=== PATIENT | male | born 1980 | race Two or more races ===

== ENCOUNTER 2017-09-01 15:36 | Inpatient (IN) | payer MEDICAID, OTHER ==
[~2017-09-01] VITALS: Ht 170.2 cm; Wt 91.6 kg
[2017-09-01] MEDS ORDERED: ONDANSETRON HCL/PF 4 MG/2 ML VIAL ONE (16:27)
[2017-09-01] MEDS ORDERED: HYDROMORPHONE INJ 2 MG/ML DISP.SYRIN ONE (16:28)
[2017-09-01] MEDS ORDERED: IV NS 0.9% 1,000 ML BAG IV ONE ×2 (16:30→21:30)
[2017-09-01] MEDS ORDERED: HYDROMORPHONE INJ 2 MG/ML DISP.SYRIN IV ONE (16:30)
[2017-09-01] MEDS ORDERED: ONDANSETRON HCL/PF 4 MG/2 ML VIAL IVP ONE (16:30)
[2017-09-01 16:38] LABS: BASOPHILS % (AUTO) 0.3 % (0.0-2.0); EOSINOPHILS % (AUTO) 1.5 % (0.0-6.0); HEMATOCRIT 43 % (39-51); LYMPHOCYTES # (AUTO) 1.3 /CMM (0.8-4.8); LYMPHOCYTES % (AUTO) 10.2 % (20.0-44.0); MEAN CORPUSCULAR HGB CONC 35 g/dl (31.0-36.0); MEAN CORPUSCULAR VOLUME 86 fL (80-96); MONOCYTES # (AUTO) 1.4 /CMM (0.1-1.30); MONOCYTES % (AUTO) 11.1 % (2.0-12.0); NEUTROPHILS # (AUTO) 9.5 /CMM (1.8-8.9); NEUTROPHILS % (AUTO) 76.9 % (43.0-81.0); PLATELET COUNT (AUTO) 371 /CMM (150-450); RDW COEFFICIENT OF VARIATION 12.4 (11.5-15.0); RED BLOOD CELL COUNT(AUTO) 4.96 MIL/uL (4.5-6.0); WHITE BLOOD COUNT (AUTO) 12.4 K/uL (4.3-11.0)
[2017-09-01 16:51] LABS: CALCIUM, SERUM 10.1 mg/dL (8.5-10.1); CARBON DIOXIDE 27 mmol/L (21-32); CHLORIDE 102 mmol/L (98-107); CREATININE 0.8 mg/dL (0.6-1.3); GLUCOSE 94 mg/dL (74-106); SODIUM SERUM 137 mmol/L (136-145); UREA NITROGEN, BLOOD 13 mg/dL (7-18)
[2017-09-01 16:56] LABS: ALANINE AMINOTRANSFERASE 26 U/L (12-78); ALKALINE PHOSPHATASE 205 U/L (46-116); ASPARTATE AMINOTRANSFERASE 22 U/L (15-37); BILIRUBIN,DIRECT 0.4 mg/dL (0.0-0.2); BILIRUBIN,TOTAL 0.9 mg/dL (0.2-1.0); LIPASE 120 U/L (73-393); TOTAL PROTEIN, SERUM 7.6 g/dL (6.4-8.2)
[2017-09-01 17:03] LABS: TROPONIN I < 0.017 ng/mL (0.00-0.056)
[2017-09-01] MEDS ORDERED: ASPI-1169 PO (18:28)
[2017-09-01] MEDS ORDERED: PIPERACILLIN /TAZOBACTAM 3.375 G in IV D5W 50 ML IV ONE (18:30)
[2017-09-01 18:53] LABS: THYROID STIMULATING HORMONE 0.928 uIU/mL (0.358-3.74)
[2017-09-01 19:02] LABS: APPEARANCE,URINE Clear (CLEAR); BILIRUBIN,URINE Negative (NEGATIVE); BLOOD, URINE Moderate Ery/uL (NEGATIVE); COLOR,URINE Yellow (YELLOW); KETONES,URINE Negative (NEGATIVE); LEUKOCYTE ESTERASE ,URINE Negative (NEGATIVE); NITRITE, URINE Negative (NEGATIVE); PROTEIN,URINE Negative (NEGATIVE); UGLUCOSE Negative (NEGATIVE); UROBILINOGEN,URINE 0.2 EU/dL (0.2)
--- NOTE | 2017-09-01 19:24 | NUR ---
RECEIVED REPORT FROM CJ SANTILLAN FOR COLEEN. PT RESTING COMFORTABLY IN BED. VSS WILL CONTINUE TO MONITOR PT
[2017-09-01 19:49] LABS: WBC,URINE 0-2 /HPF (0-3)
[2017-09-01 19:50] LABS: BACTERIA,URINE Rare /HPF (None Seen); SQUAMOUS EPITHELIAL CELL,UR Rare /HPF (None Seen)
--- NOTE | 2017-09-01 21:15 | NUR ---
CALLED NURSING SUP. FOR TELE BED
--- NOTE | 2017-09-01 21:21 | NUR ---
TELE 323-1 FOR CHEST PAIN, ABDOMINAL PAIN, MICHEL EDWARD ADMITTING
--- NOTE | 2017-09-01 21:37 | NUR ---
PT TO CT
[2017-09-01] MEDS ORDERED: IOHEXOL-350 100 ML VIAL IV ONE (21:39)
--- NOTE | 2017-09-01 21:55 | NUR ---
PT BACK FROM CT
--- NOTE | 2017-09-01 22:38 | NUR ---
DL 102
--- NOTE | 2017-09-01 22:50 | NUR ---
REPORT GIVEN TO DL MOYA FOR COLEEN.
[2017-09-01 23:25] VITALS: BP 130/87
--- NOTE | 2017-09-01 23:30 | NUR ---
RN DL ADMITTING NOTE RECEIVED PT FROM ER, NIGHT WAREHOUSE SELECTOR NURSE GAVE REPORT, 37 YR OLD MALE, C/O BACK PAIN RADIATING TO ABD, CONSTIPATION, AOX3, ON NC @ 2L/PM WELL ISIDRA , NO SKIN ISSUES, WITH LAC #18G, INTACT. ADMITTING NURSE EPIDEMIOLOGIST WAGNER, ORDERS ENTERED PER PROTOCOL, PT CAME C/O ABD PAIN 10/10 DILUADID PRN 0.5 MG GIVEN ORDERED, EFFECTIVE AFTER 30 MINUTES, PT NPO, NS@75ML STARTED. ALL NEEDS MET CALL LIGHT WR WELL SAFETY MEASURES IN PLACE. WILL CONT TO MONITOR, PT FOR ECG N AM.
[2017-09-01] MEDS ORDERED: IV NS 0.9% 1,000 ML IV PRN (23:51)
[2017-09-02] VITALS: BP 130/87
[2017-09-02] MEDS ORDERED: MAGNESIUM HYDROXIDE 30 ML UDC PO PRN
[2017-09-02] MEDS ORDERED: MAG HYDROX/AL HYDROX/SIMETH 30 ML UDC PO PRN
[2017-09-02] MEDS ORDERED: ONDANSETRON HCL/PF 4 MG/2 ML VIAL IVP PRN
[2017-09-02] MEDS ORDERED: ZOLPIDEM TARTRATE 5 MG TABLET PO PRN
[2017-09-02] MEDS ORDERED: ACETAMINOPHEN 325 MG TABLET PO PRN
[2017-09-02] MEDS ORDERED: Z GUARD REMEDY 2 OZ OINT TP PRN
[2017-09-02] MEDS: HYDROMORPHONE INJ 2 MG/ML DISP.SYRIN IV PRN ×4 (00:31→20:03)
[2017-09-02] MEDS: ENOXAPARIN SODIUM 40 MG/0.4 ML DISP.SYRIN SQ SCH (00:33)
[2017-09-02 04:00] VITALS: BP 128/66
--- NOTE | 2017-09-02 06:13 | NUR ---
RN DL CLOSING NOTES ENDORSED PT STILL ASLEEP, SEVERAL ATTEMPTS MADE THROUGH SHIFT TO GIVE MOM PRN D/T CONSTIPATION PT INSIST TO HAVE IT IN AM. WILL ENDORSE TO AM SHIFT TO F/U.
[2017-09-02 07:07] LABS: BASOPHILS % (AUTO) 0.2 % (0.0-2.0); EOSINOPHILS % (AUTO) 1.9 % (0.0-6.0); HEMATOCRIT 40 % (39-51); HEMOGLOBIN 13.5 g/dL (13.5-17.5); LYMPHOCYTES # (AUTO) 1.6 /CMM (0.8-4.8); LYMPHOCYTES % (AUTO) 13.5 % (20.0-44.0); MEAN CORPUSCULAR HGB CONC 34 g/dl (31.0-36.0); MEAN CORPUSCULAR VOLUME 88 fL (80-96); MONOCYTES # (AUTO) 1.4 /CMM (0.1-1.30); MONOCYTES % (AUTO) 11.8 % (2.0-12.0); NEUTROPHILS # (AUTO) 8.8 /CMM (1.8-8.9); NEUTROPHILS % (AUTO) 72.6 % (43.0-81.0); PLATELET COUNT (AUTO) 353 /CMM (150-450); RDW COEFFICIENT OF VARIATION 13.7 (11.5-15.0); RED BLOOD CELL COUNT(AUTO) 4.51 MIL/uL (4.5-6.0); WHITE BLOOD COUNT (AUTO) 12.1 K/uL (4.3-11.0)
[2017-09-02 07:22] LABS: CALCIUM, SERUM 9.8 mg/dL (8.5-10.1); CREATININE 0.7 mg/dL (0.6-1.3); MAGNESIUM 1.8 mg/dL (1.8-2.4); PHOSPHORUS 3.4 mg/dL (2.5-4.9); POTASSIUM 4.6 mmol/L (3.5-5.1)
[2017-09-02 08:00] VITALS: BP 118/83
--- NOTE | 2017-09-02 08:00 | NUR ---
DL RN NOTE PATIENT IN BED ,ALL NEEDS ATTENDED ON NPO STATUS ,ON TELE MONITOR ST 110 ,LT AC HL ON IVF ORDERED BED IN LOWEST AND LOCKED POSITION , CALL LIGHT WITHIN REACH, MOM GIVEN FOR CONSTIPATION NO SOB NOTED
[2017-09-02] MEDS: PIPERACILLIN /TAZOBACTAM 3.375 G in IV D5W 50 ML IV SCH ×3 (08:08→17:14)
[2017-09-02] MEDS: PANTOPRAZOLE 40 MG VIAL IV SCH (08:08)
--- NOTE | 2017-09-02 09:20 | NUR ---
DL RN NOTE SEEN BY DR GRACE DEPARTMENTAL SHIPPING CLERK WITH NEW ORDER GIVEN
[2017-09-02] MEDS: ASPIRIN 81 MG TAB.CHEW PO SCH (09:26)
--- NOTE | 2017-09-02 09:30 | NUR ---
DL RN NOTE DILAUDID FOE PAIN 9\10 SCALE IN ABDOMEN GIVEN BP 118/83 SAT 93% AT BEDSIDE
--- NOTE | 2017-09-02 10:26 | NUR ---
DL RN NOTE C\O CONSTIPATION ,CALLED TO SAMANTA VILLARREAL WITH ORDER TO GIVE SUP NEEDED
[2017-09-02] MEDS ORDERED: BISACODYL SUPP (10 MG) 10 MG/SUPP.RECT SUPP.RECT RC PRN ×2 (10:30→19:30)
[2017-09-02 12:00] VITALS: BP 118/83
--- NOTE | 2017-09-02 12:25 | NUR ---
MS RN NOTE DULCOLAX SUP KS GIVEN ORDERED ,WILL MONITOR CLOSELY
--- NOTE | 2017-09-02 12:37 | NUR ---
MS RN NOTE PER SAMANTA VILLARREAL OK TO START CLEAR LIQUID DIET
--- NOTE | 2017-09-02 13:04 | NUR ---
MS RN NOTE SPOKE WITH SAMANTA VILLARREAL DNP NOTIFIED ABOUT CT ABDOMEN , STATED THAT WILL SEE PATIENT SOON ALSO AWARE THAT PRN MED FOR CONSTIPATION DONE STILL N BM T THI TIME WILL F\U
[2017-09-02] MEDS ORDERED: IOHEXOL-300 100 ML VIAL IV ONE (14:50)
--- NOTE | 2017-09-02 14:50 | NUR ---
MS RN NOTE TAKEN TO CT NECK CONSENT DONE BY PATIENT
--- NOTE | 2017-09-02 15:39 | NUR ---
MS RN NOTE 2D ECHO DOING AT THIS TIME
[2017-09-02 16:00] VITALS: BP 124/72
--- NOTE | 2017-09-02 17:15 | NUR ---
MS RN NOTE CT NECK RESULT REPORTED TO SAMANTA PINO NO NEW ORDER AT THIS TIME
--- NOTE | 2017-09-02 18:27 | NUR ---
MS RN NOTE CONT ON IVF ORDERED ALL NEEDS ATTENDED, NOT IN ACUTE DISTRES
[2017-09-02] MEDS ORDERED: POTASSIUM CHLORIDE 20 MEQ TAB.PRT.SR PO ONE (19:30)
[2017-09-02] MEDS ORDERED: FUROSEMIDE 100 MG/10 ML VIAL IV ONE (19:30)
[2017-09-02 20:00] VITALS: BP 117/76
--- NOTE | 2017-09-02 20:00 | NUR ---
DL RN NOTES RECEIVED BEDSIDE REPORT FROM AM NURSE. PT IN BES, A/O X4, EVEN, NON LABORED BREATHING WITH OXYGENATION LEVEL OF 92% ON RA, PT IS REFUSING TO USE NC FOR NOW. PT IS COMPLAINING OF PAIN 10/10 IN THE ABDOMINAL AREA. PAIN MANAGEMENT WILL BE PROVIDED. PT IS AMBULATORY WITH BRP, COMPLAINS OF CONSTIPATION FOR 2 DAYS. LEFT AC 18G IV LINE INFILTRATED AND REMOVED.NEW IV LINE 18G LEFT HAND HAS BEEN STARTED WHICH IS INTACT, PATIENT. IV FLUIDS ARE DC BY MD ORDER.ALL SAFETY MEASURES ARE IMPLEMENTED, BED IN LOW, LOCKED POSITION, CALL LIGHT IN REACH. WILL CONT. TO MONITOR.
[2017-09-02] MEDS: SENNOSIDES 8.6 MG TABLET PO SCH (21:43)
[2017-09-03] MEDS: PIPERACILLIN /TAZOBACTAM 3.375 G in IV D5W 50 ML IV SCH ×4 (00:51→17:13)
[2017-09-03] MEDS: ENOXAPARIN SODIUM 40 MG/0.4 ML DISP.SYRIN SQ SCH (00:52)
[2017-09-03] MEDS: HYDROCODONE/APAP 5/325MG 1 EACH TABLET PO PRN (01:02)
[2017-09-03 04:00] VITALS: BP_SYST 100; BP_SYST 126; BP_DIAS 42; BP_DIAS 91
[2017-09-03] MEDS: HYDROMORPHONE INJ 2 MG/ML DISP.SYRIN IV PRN ×4 (04:31→21:24)
[2017-09-03 06:31] LABS: BASOPHILS % (AUTO) 0.3 % (0.0-2.0); EOSINOPHILS % (AUTO) 2.1 % (0.0-6.0); HEMATOCRIT 40 % (39-51); HEMOGLOBIN 13.5 g/dL (13.5-17.5); LYMPHOCYTES # (AUTO) 1.5 /CMM (0.8-4.8); LYMPHOCYTES % (AUTO) 12.4 % (20.0-44.0); MEAN CORPUSCULAR HGB CONC 34 g/dl (31.0-36.0); MEAN CORPUSCULAR VOLUME 87 fL (80-96); MONOCYTES # (AUTO) 1.3 /CMM (0.1-1.30); MONOCYTES % (AUTO) 10.9 % (2.0-12.0); NEUTROPHILS % (AUTO) 74.3 % (43.0-81.0); PLATELET COUNT (AUTO) 409 /CMM (150-450); RDW COEFFICIENT OF VARIATION 13.5 (11.5-15.0); RED BLOOD CELL COUNT(AUTO) 4.63 MIL/uL (4.5-6.0); WHITE BLOOD COUNT (AUTO) 12.1 K/uL (4.3-11.0)
[2017-09-03 06:55] LABS: CALCIUM, SERUM 10.3 mg/dL (8.5-10.1); CREATININE 0.7 mg/dL (0.6-1.3); MAGNESIUM 1.9 mg/dL (1.8-2.4); PHOSPHORUS 3.4 mg/dL (2.5-4.9); POTASSIUM 4.5 mmol/L (3.5-5.1)
[2017-09-03 08:00] VITALS: BP 122/76
[2017-09-03] MEDS: ASPIRIN 81 MG TAB.CHEW PO SCH (09:14)
[2017-09-03] MEDS: PANTOPRAZOLE 40 MG VIAL IV SCH (09:14)
[2017-09-03] MEDS: LACTULOSE 10 G/15 ML UDC (PYXIS) PO PRN (09:21)
--- NOTE | 2017-09-03 11:40 | NUR ---
RN NOTE PT CO PAIN IN ABDOMEN AND UNABLE TO MOVE BOWELS FOR 5 DAYS NOW, DULCOLAX RECTALLY, MOM GIVEN YESTERDAY WITHOUT RESULT, PT RECEIVED LACTULOSE THIS MORNING, STILL NO RESULT, PT REPORTED THAT HE PASSES GAS ONLY. WILL F/U WITH .
--- NOTE | 2017-09-03 12:35 | NUR ---
RN NOTE PT REPORTED HAVING SOFT BOWEL MOVEMENT X1 AFTER GIVING LACTULOSE EARLIER. WILL MONITOR PT CLOSELY.
[2017-09-03 16:00] VITALS: BP 131/99
--- NOTE | 2017-09-03 19:30 | NUR ---
MS RN INITIAL NOTES, PATIENT IN BED , SLEEPING AT THIS TIME, BREATHING EVEN AND UNLABORED, NO SOB/ACUTE DISTRESS NOTES AT THIS TIME, NO S/S OF PAIN OR DISCOMFORT NOTES AT THIS TIME, LEFT HAND IV ACCESS PATENT AND INTACT, BED LOWEST AND LOCKED POSITION , CALL LIGHT WITHIN REACH, CALL LIGHT W/I REACH, WILL CONTINUE TO MONITOR CLOSELY.
[2017-09-03 20:00] VITALS: BP 132/72
[2017-09-03] MEDS: MUPIROCIN OINT 2% 22 GM TUBE SCH (21:23)
[2017-09-03] MEDS: SENNOSIDES 8.6 MG TABLET PO SCH (21:23)
[2017-09-04] MEDS: ENOXAPARIN SODIUM 40 MG/0.4 ML DISP.SYRIN SQ SCH
[2017-09-04] MEDS: PIPERACILLIN /TAZOBACTAM 3.375 G in IV D5W 50 ML IV SCH ×4 (00:54→17:12)
[2017-09-04] MEDS: HYDROMORPHONE INJ 2 MG/ML DISP.SYRIN IV PRN ×3 (01:39→12:51)
[2017-09-04 04:00] VITALS: BP 120/83
--- NOTE | 2017-09-04 06:43 | NUR ---
MS RN CLOSING NOTES, PATIENT IN BED ,AWAKE ALERT AND ORIENTED X4, BREATHING EVEN AND UNLABORED, NO SOB/ACUTE DISTRESS NOTES AT THIS TIME, NO S/S OF PAIN OR DISCOMFORT NOTED AT THIS TIME, LEFT HAND IV ACCESS PATENT AND INTACT, BED LOWEST AND LOCKED POSITION , NO SIGNIFICANT CHANGE OF CONDITION DURING THE SHIFT, CALL LIGHT W/I REACH, WILL ENDORSE CONTINUITY OF CARE TO ONCOMING NURSE.
[2017-09-04 07:03] LABS: BASOPHILS % (AUTO) 0.3 % (0.0-2.0); EOSINOPHILS % (AUTO) 2.1 % (0.0-6.0); HEMATOCRIT 40 % (39-51); HEMOGLOBIN 13.5 g/dL (13.5-17.5); LYMPHOCYTES # (AUTO) 1.3 /CMM (0.8-4.8); LYMPHOCYTES % (AUTO) 11.5 % (20.0-44.0); MEAN CORPUSCULAR HGB CONC 34 g/dl (31.0-36.0); MEAN CORPUSCULAR VOLUME 86 fL (80-96); MONOCYTES # (AUTO) 1.3 /CMM (0.1-1.30); MONOCYTES % (AUTO) 11.5 % (2.0-12.0); NEUTROPHILS # (AUTO) 8.5 /CMM (1.8-8.9); NEUTROPHILS % (AUTO) 74.6 % (43.0-81.0); PLATELET COUNT (AUTO) 375 /CMM (150-450); RDW COEFFICIENT OF VARIATION 13.3 (11.5-15.0); RED BLOOD CELL COUNT(AUTO) 4.59 MIL/uL (4.5-6.0); WHITE BLOOD COUNT (AUTO) 11.3 K/uL (4.3-11.0)
[2017-09-04 07:25] LABS: INR 1.05 (0.87-1.13)
[2017-09-04 07:40] LABS: CALCIUM, SERUM 10.3 mg/dL (8.5-10.1); CREATININE 0.8 mg/dL (0.6-1.3); PHOSPHORUS 3.2 mg/dL (2.5-4.9); POTASSIUM 4.1 mmol/L (3.5-5.1)
[2017-09-04 08:00] VITALS: BP 103/70
[2017-09-04] MEDS: PANTOPRAZOLE 40 MG VIAL IV SCH (08:29)
[2017-09-04] MEDS: MUPIROCIN OINT 2% 22 GM TUBE SCH ×2 (08:43→21:24)
[2017-09-04] MEDS: ASPIRIN 81 MG TAB.CHEW PO SCH (08:45)
[2017-09-04] MEDS: HYDROCODONE/APAP 5/325MG 1 EACH TABLET PO PRN ×2 (10:09→20:27)
--- NOTE | 2017-09-04 10:10 | NUR ---
RN NOTE PT HAD US GUIDED THORACENTHESIS N LEFT SIDE, TOTAL 1.2 L OF BLOODY FLUID REMOVED AND SENT TO PATHOLOGY. STAT CXR ORDERED. PT CO PAIN 7/10 IN LEFT SHOULDER POST THORAACENTESIS, NO SOB NOTED, LUNG SOUNDS RHONCHI, CHEST MOVEMENTS EQUAL.
[2017-09-04] MEDS: PANTOPRAZOLE 40 MG TABLET.DR PO SCH (10:30)
[2017-09-04] MEDS: FUROSEMIDE 40 MG/4 ML VIAL IV SCH ×2 (10:56→14:48)
[2017-09-04 11:02] VITALS: BP 107/68
[2017-09-04 16:00] VITALS: BP 110/71
--- NOTE | 2017-09-04 16:00 | NUR ---
RN NOTE SPOKE WITH US TECH REGARDING THE BIOPSY OF NECK IN L NECK, PT SCHEDULED FOR PROCEDURE ON 09/05/17 AT [id number] AM. PT TO BE KEPT NPO BEFORE PROCEDURE. WILL ENDORSE TO APPLICATIONS PROJECT MANAGER
[2017-09-04] MEDS: LACTULOSE 10 G/15 ML UDC (PYXIS) PO PRN (17:12)
--- NOTE | 2017-09-04 19:35 | NUR ---
RN NOTES PT RECEIVED STABLE CONDITION. FAMILY AT BEDSIDE. PT A/OX4. NEGATIVE SOB. NEGATIVE DISTRESS. 20G L HAND INTACT WITH GOOD BLOOD RETURN NEGATIVE SIGNS OF INFECTION/ INFILTRATION. ABLE TO AMBULATE WITH ASSISTANCE. BED LOCKED AND LOWEST POSITION. CALL LIGHT WITHIN REACH. ALL SAFETY OTHER SAFETY MEASURES IN PLACE. WILL CONTINUE TO MONITOR.
[2017-09-04 20:00] VITALS: BP 130/79
[2017-09-04] MEDS: SENNOSIDES 8.6 MG TABLET PO SCH (21:04)
[2017-09-05] VITALS: BP 136/80
[2017-09-05] MEDS: ENOXAPARIN SODIUM 40 MG/0.4 ML DISP.SYRIN SQ SCH
--- NOTE | 2017-09-05 | NUR ---
RN NOTES LOVENOX HELD DUE TO CT WITHOUT CONTRAST PROCEDURE SCHEDULED FOR LATER TODAY.
[2017-09-05] MEDS: PIPERACILLIN /TAZOBACTAM 3.375 G in IV D5W 50 ML IV SCH ×3 (00:42→11:57)
[2017-09-05] MEDS: HYDROMORPHONE INJ 2 MG/ML DISP.SYRIN IV PRN ×2 (00:43→09:03)
[2017-09-05 06:38] LABS: BASOPHILS % (AUTO) 0.3 % (0.0-2.0); EOSINOPHILS % (AUTO) 2.6 % (0.0-6.0); HEMATOCRIT 42 % (39-51); HEMOGLOBIN 14.2 g/dL (13.5-17.5); LYMPHOCYTES # (AUTO) 1.5 /CMM (0.8-4.8); LYMPHOCYTES % (AUTO) 12.5 % (20.0-44.0); MEAN CORPUSCULAR HGB CONC 34 g/dl (31.0-36.0); MEAN CORPUSCULAR VOLUME 86 fL (80-96); MONOCYTES # (AUTO) 1.3 /CMM (0.1-1.30); MONOCYTES % (AUTO) 10.9 % (2.0-12.0); NEUTROPHILS # (AUTO) 8.8 /CMM (1.8-8.9); NEUTROPHILS % (AUTO) 73.7 % (43.0-81.0); PLATELET COUNT (AUTO) 409 /CMM (150-450); RDW COEFFICIENT OF VARIATION 13.5 (11.5-15.0); RED BLOOD CELL COUNT(AUTO) 4.82 MIL/uL (4.5-6.0); WHITE BLOOD COUNT (AUTO) 11.9 K/uL (4.3-11.0)
[2017-09-05 07:13] LABS: TROPONIN I < 0.017 ng/mL (0.00-0.056)
[2017-09-05 07:17] LABS: ALANINE AMINOTRANSFERASE 36 U/L (12-78); ALBUMIN 2.5 g/dL (3.4-5.0); ALKALINE PHOSPHATASE 193 U/L (46-116); ASPARTATE AMINOTRANSFERASE 27 U/L (15-37); CALCIUM, SERUM 10.4 mg/dL (8.5-10.1); CARBON DIOXIDE 27 mmol/L (21-32); CHLORIDE 99 mmol/L (98-107); CREATININE 0.7 mg/dL (0.6-1.3); GLUCOSE 97 mg/dL (74-106); MAGNESIUM 1.8 mg/dL (1.8-2.4); PHOSPHORUS 2.9 mg/dL (2.5-4.9); POTASSIUM 3.9 mmol/L (3.5-5.1); SODIUM SERUM 136 mmol/L (136-145); TOTAL PROTEIN, SERUM 7.3 g/dL (6.4-8.2); UREA NITROGEN, BLOOD 14 mg/dL (7-18)
[2017-09-05] MEDS: ASPIRIN 81 MG TAB.CHEW PO SCH (07:49)
[2017-09-05] MEDS: PANTOPRAZOLE 40 MG TABLET.DR PO SCH (07:49)
[2017-09-05] MEDS: HYDROCODONE/APAP 5/325MG 1 EACH TABLET PO PRN (07:50)
[2017-09-05] MEDS: MUPIROCIN OINT 2% 22 GM TUBE SCH (07:50)
--- NOTE | 2017-09-05 07:55 | NUR ---
RN NOTES PT STABLE CONDITION. VSS. SAFETY MEASURES IN PLACE. CALL LIGHT WITHIN REACH. WILL ENDORSE TO ONCOMING NURSE.
[2017-09-05 08:00] VITALS: BP 128/75
[2017-09-05] MEDS ORDERED: FUROSEMIDE 80 MG TABLET PO SCH (11:00)
[2017-09-05] MEDS ORDERED: POTASSIUM CHLORIDE 20 MEQ TAB.PRT.SR PO SCH (11:00)
--- NOTE | 2017-09-05 11:00 | NUR ---
RN NOTE PATIENT IN RADIOLOGY FOR BIOPSY
[2017-09-05] MEDS ORDERED: FURO80TA3 PO (14:18)
--- NOTE | 2017-09-05 15:00 | NUR ---
RN NOTE PATIENT DISCHARGED. PAPERWORK COMPLETED AND SIGNED. IV SITE AND ID BAND REMOVED. PRESCRIPTION CALLED IN TO [facility] ON [address].
== END 2017-09-05 15:00 | disposition home or self-care (01) | DRG 952 ==
LOC: ER 15:38 → TELE 21:39 → TELE-TD 22:46 → MEDSG1 09-02 11:28
PROVIDERS: ADMIT Hospitalist; ATTEND Hospitalist
PROC: 0W9B3ZZ Drainage of Left Pleural Cavity, Percutaneous Approach (ICD-10-PCS; principal; 2017-09-04)
PROC: 07D23ZX Extraction of Left Neck Lymphatic, Percutaneous Approach, Diagnostic (ICD-10-PCS; 2017-09-05)
DX: J96.01 Acute respiratory failure with hypoxia (principal); J81.1 Chronic pulmonary edema; J91.0 Malignant pleural effusion; E44.0 Moderate protein-calorie malnutrition; I31.3 Pericardial effusion (noninflammatory); C76.0 Malignant neoplasm of head, face and neck; E88.09 Other disorders of plasma-protein metabolism, not elsewhere classified; R16.0 Hepatomegaly, not elsewhere classified; E83.52 Hypercalcemia; F15.90 Other stimulant use, unspecified, uncomplicated; Z95.5 Presence of coronary angioplasty implant and graft; J32.0 Chronic maxillary sinusitis; R22.1 Localized swelling, mass and lump, neck; D72.829 Elevated white blood cell count, unspecified; R74.8 Abnormal levels of other serum enzymes; I25.2 Old myocardial infarction; E66.9 Obesity, unspecified; Z68.31 Body mass index [BMI] 31.0-31.9, adult; I25.10 Atherosclerotic heart disease of native coronary artery without angina pectoris; Z80.3 Family history of malignant neoplasm of breast; N20.0 Calculus of kidney; K59.00 Constipation, unspecified; E80.6 Other disorders of bilirubin metabolism
CPT/HCPCS: 36415; 70491-TC; 71045-TC; 76705-TC; 76942-TC; 80048-TC; 80053-TC; 80061-TC; 80076-TC; 81000-TC; 83605-TC; 83615-TC; 83690-TC; 83735-TC; 83880; 84100-TC; 84443-TC; 84484-TC; 85025-TC; 85610-TC; 85730-TC; 87040-TC; 87070-TC; 87081-TC; 87086-TC; 88305-TC; 88312-TC; 88342; 89051-TC; 93307-TC; A4606; A6402; C9113; J1170; J1650; J1940; J2405; J2543; J7030; J7060; Q9967; Z7610

== ENCOUNTER 2017-09-08 22:55 | Emergency (ER) | payer OTHER ==
[~2017-09-08] VITALS: Ht 170.2 cm; Wt 90.7 kg
[~2017-09-08 22:55] MED LIST: ASPI-1169 PO; FURO80TA3 PO
[2017-09-09 01:02] VITALS: BP 120/80
== END 2017-09-09 01:03 | disposition home or self-care (01) ==
LOC: ER 22:57
DX: M54.5 Low back pain (principal); F17.200 Nicotine dependence, unspecified, uncomplicated; Z79.82 Long term (current) use of aspirin; Z95.818 Presence of other cardiac implants and grafts; Z98.890 Other specified postprocedural states
CPT/HCPCS: 71045-TC; A4606; Z7610

== ENCOUNTER 2017-10-01 01:00 | Inpatient (IN) | payer MEDICAID, OTHER ==
[~2017-10-01] VITALS: Ht 170.2 cm; Wt 88.9 kg
--- NOTE | 2017-10-01 01:06 | NUR ---
PT AMBULATORY TO ER BED 14. BIB FAMILY FROM HOME C/O L LOWER ARM PAIN FROM OLD IV SITE. DC FROM [facility] ON 09/05. PT PLACED ON SENIOR MAINTENANCE MECHANIC. VSS/RESP EVEN UNLABORED/NAD NOTED/SKIN WARM AND DRY/AFEBRILE/DENIES N-V-D/AOX4. AWAITING MD WINKLER.
--- NOTE | 2017-10-01 01:35 | NUR ---
EMT AT BEDSIDE FOR EKG.
--- NOTE | 2017-10-01 01:40 | NUR ---
LAB AT BEDSIDE FOR DRAW.
[2017-10-01 01:50] LABS: BASOPHILS % (AUTO) 0.2 % (0.0-2.0); EOSINOPHILS % (AUTO) 3.9 % (0.0-6.0); HEMATOCRIT 42 % (39-51); HEMOGLOBIN 13.9 g/dL (13.5-17.5); LYMPHOCYTES # (AUTO) 1.4 /CMM (0.8-4.8); LYMPHOCYTES % (AUTO) 15.4 % (20.0-44.0); MEAN CORPUSCULAR HEMOGLOBIN 29 PG (26.0-33.0); MEAN CORPUSCULAR HGB CONC 33 g/dl (31.0-36.0); MEAN CORPUSCULAR VOLUME 86 fL (80-96); MONOCYTES # (AUTO) 0.8 /CMM (0.1-1.30); MONOCYTES % (AUTO) 8.8 % (2.0-12.0); NEUTROPHILS # (AUTO) 6.7 /CMM (1.8-8.9); NEUTROPHILS % (AUTO) 71.7 % (43.0-81.0); PLATELET COUNT (AUTO) 332 /CMM (150-450); RDW COEFFICIENT OF VARIATION 14.3 (11.5-15.0); RED BLOOD CELL COUNT(AUTO) 4.84 MIL/uL (4.5-6.0); WHITE BLOOD COUNT (AUTO) 9.4 K/uL (4.3-11.0)
[2017-10-01] MEDS ORDERED: SULFAMETH/TRIMETH 800/160 MG 1 UDTAB TABLET PO ONE ×2 (01:55→02:00)
--- NOTE | 2017-10-01 01:58 | NUR ---
TECHNICIAN PREVENTATIVE MEDICINE AT BEDSIDE FOR VENOUS DUPLEX.
[2017-10-01 02:07] LABS: CARBON DIOXIDE 27 mmol/L (21-32); CHLORIDE 106 mmol/L (98-107); CREATININE 0.8 mg/dL (0.6-1.3); GLUCOSE 121 mg/dL (74-106); POTASSIUM 3.9 mmol/L (3.5-5.1); SODIUM SERUM 142 mmol/L (136-145); UREA NITROGEN, BLOOD 14 mg/dL (7-18)
--- NOTE | 2017-10-01 02:11 | NUR ---
20G IV TO R AC X 1 ATTEMPT USING ASEPTIC TECH. IV FLUSHES EASILY WITH NS, NO S/S INFILTRATION NOTED AT THIS TIME.
[2017-10-01 02:15] LABS: TROPONIN I < 0.017 ng/mL (0.00-0.056)
[2017-10-01 02:20] LABS: ALANINE AMINOTRANSFERASE 18 U/L (12-78); ALBUMIN 3.1 g/dL (3.4-5.0); ALKALINE PHOSPHATASE 226 U/L (46-116); ASPARTATE AMINOTRANSFERASE 12 U/L (15-37); B-TYPE NATRIURETIC PEPTIDE 229 PG/ML (0-125); BILIRUBIN,DIRECT 0.1 mg/dL (0.0-0.2); BILIRUBIN,TOTAL 0.4 mg/dL (0.2-1.0); TOTAL PROTEIN, SERUM 7.2 g/dL (6.4-8.2)
[2017-10-01 02:23] LABS: INR 1.03 (0.87-1.13)
[2017-10-01 02:53] LABS: D-DIMER 6.64 mg/L(FEU (0.17-0.50)
[2017-10-01] MEDS ORDERED: IOHEXOL-350 100 ML VIAL IV ONE (03:12)
[2017-10-01] MEDS ORDERED: CT SWABBABLE VALVE TRANS SET 1 EA INFUS.SET MC ONE (03:12)
[2017-10-01] MEDS ORDERED: IV NS 0.9% 500 ML IV ONE (03:13)
--- NOTE | 2017-10-01 03:24 | NUR ---
PT TO RADIOLOGY FOR CTA VIA STRETCHER. VSS.
[2017-10-01] MEDS ORDERED: HYDROMORPHONE INJ 2 MG/ML DISP.SYRIN ONE (03:36)
--- NOTE | 2017-10-01 03:38 | NUR ---
PT BACK FROM RADIOLOGY.
[2017-10-01 04:00] VITALS: BP 143/96
[2017-10-01] MEDS ORDERED: HYDROCODONE/APAP 5/325MG 1 EACH TABLET PO ONE (04:00)
[2017-10-01] MEDS ORDERED: ONDANSETRON HCL/PF - ER 4 MG/2 ML VIAL IV ONE (04:00)
[2017-10-01] MEDS ORDERED: ONDANSETRON HCL/PF 4 MG/2 ML VIAL ONE (04:03)
[2017-10-01] MEDS ORDERED: HYDROCODONE/APAP 5/325MG 1 EACH TABLET ONE (04:03)
[2017-10-01] MEDS ORDERED: ENOXAPARIN SODIUM 60 MG/0.6 ML DISP.SYRIN SQ ONE ×2 (04:09→04:30)
[2017-10-01] MEDS ORDERED: ENOXAPARIN SODIUM 30 MG/0.3 ML DISP.SYRIN ONE (04:09)
--- NOTE | 2017-10-01 04:59 | NUR ---
REPORT GIVEN TO JC CALERO FOR COLEEN. PT ADMIT TO DL 106.
--- NOTE | 2017-10-01 05:15 | NUR ---
PT TRANSPORTED TO DL 106 VIA STRETCHER ON MERCURY CELL CLEANER WITH RN PER ACLS PROTOCOL. VSS.
[2017-10-01 05:20] VITALS: BP 143/96
[2017-10-01] MEDS ORDERED: Z GUARD REMEDY 2 OZ OINT TP PRN (05:30)
[2017-10-01] MEDS ORDERED: HYDROCODONE/APAP 5/325MG 1 EACH TABLET PO PRN (05:30)
[2017-10-01] MEDS ORDERED: MAG HYDROX/AL HYDROX/SIMETH 30 ML UDC PO PRN (05:30)
[2017-10-01] MEDS ORDERED: ZOLPIDEM TARTRATE 5 MG TABLET PO PRN (05:30)
[2017-10-01] MEDS ORDERED: MAGNESIUM HYDROXIDE 30 ML UDC PO PRN (05:30)
[2017-10-01] MEDS ORDERED: ONDANSETRON HCL/PF 4 MG/2 ML VIAL IVP PRN (05:30)
[2017-10-01] MEDS ORDERED: ACETAMINOPHEN 325 MG TABLET PO PRN (05:30)
--- NOTE | 2017-10-01 05:30 | NUR ---
DL/BRIM BUSTER NOTES: ADMITTED AN 37 YRS OLD MALE VIA GURNEY FROM E.R. PT. AMBULATED TO THE BED FROM STRETCH W/ STEADY GAIT. A/O X 4. ON TELE MONITOR W/ SR. DENIES ANY C/O CHEST PAIN OR SOB AT PRESENT. PT. C/O FEELING SOB W/ EXERTION. W/ O2 @ 2LPM VIA N/C SAT 98%. W/ FIANCEE BY BEDSIDE. HAS 20 G ON RAC PATENT AND INTACT W/ NO S/S OF INFECTION/INFILTRATION NOTED. CONTINENT OF B/B. CALL LIGHT W/ REACH. WILL CONTINUE TO MONITOR.
--- NOTE | 2017-10-01 07:15 | NUR ---
RN INITIAL NOTES: REC'D PT AWAKE ON BED, NOT IN ANY DISTRESS, A/O X 4, DENIES ANY PAIN & DISCOMFORT AT THIS TIME. ON ROOM AIR, NO SOB. ON TELEMONITOR, ST 107. HAS R AC G20, SL, FLUSHING WELL, PATENT & INTACT W/ NO S/SX OF INFECTION/INFILTRATION NOTED. PROVIDED COMFORT & SAFETY MEASURES. BED KEPT LOW & IN LOCKED POS. CALL LIGHT PLACED W/IN REACH. WILL CONTINUE TO MONITOR & ATTEND PT NEEDS.
--- NOTE | 2017-10-01 07:28 | NUR ---
DL/RN NOTES: NO ACUTE CHANGES NOTED DURING THIS SHIFT. REPORT GIVEN TO AM NURSE FOR COLEEN.
[2017-10-01 08:00] VITALS: BP 137/96
[2017-10-01] MEDS ORDERED: ASPIRIN 81 MG TAB.CHEW PO SCH (09:00)
--- NOTE | 2017-10-01 09:30 | NUR ---
RN NOTES: PT SEEN & EXAMINED BY DR. LANDEROS W/ PLANS TO START BLOOD THINNER FOR PE & REFER TO ONCO. MADE AWARE THAT PT/FIANCE PREFERRED DR. CARY.
[2017-10-01 12:00] VITALS: BP 132/90
[2017-10-01] MEDS: ENOXAPARIN SODIUM 100 MG/ML DISP.SYRIN SQ SCH (12:53)
[2017-10-01 16:00] VITALS: BP 139/85
--- NOTE | 2017-10-01 17:10 | NUR ---
RN NOTES: TRANSFER OF CARE ENDORSED TO CJ DERAS. NO ACUTE CHANGES HAPPENED W/IN SHIFT.
--- NOTE | 2017-10-01 18:37 | NUR ---
SPECIAL AGENT GROUP INSURANCE END NOTES PATIENT IS RESTING IN BED, ALL NEEDS MET, ALL QUESTIONS ANSWERED. WILL ENDORSE TO MOLD MAKER PLASTER FOR CONTINUITY OF CARE.
--- NOTE | 2017-10-01 19:10 | NUR ---
MS/RN NOTES RECEIVED PT. LYING IN BED RESTING. PT. IS EASILY AROUSABLE TO NAME. AWAKE, ALERT AND ORIENTED X4. BREATHING EVEN AND UNLABORED ON 2LPM O2 VIA NC. NO SOB, RESPIRATORY DISTRESS OR COMPLAINTS OF PAIN NOTED AT THIS TIME. PT. WITH RIGHT AC 20 GAUGE IV SALINE LOCK PRESENT, PATENT AND INTACT. BED LOCKED AND IN LOWEST POSITION, SIDE RAILS UP X2, CALL LIGHT WITHIN REACH, WILL CONTINUE TO MONITOR.
[2017-10-02] MEDS: ENOXAPARIN SODIUM 100 MG/ML DISP.SYRIN SQ SCH (00:28)
[2017-10-02 04:00] VITALS: BP 129/87
[2017-10-02 06:25] LABS: BASOPHILS # (AUTO) 0.1 /CMM (0.0-0.2); BASOPHILS % (AUTO) 0.6 % (0.0-2.0); EOSINOPHILS % (AUTO) 4.5 % (0.0-6.0); HEMATOCRIT 43 % (39-51); HEMOGLOBIN 14.5 g/dL (13.5-17.5); LYMPHOCYTES # (AUTO) 1.3 /CMM (0.8-4.8); LYMPHOCYTES % (AUTO) 14.6 % (20.0-44.0); MEAN CORPUSCULAR HEMOGLOBIN 29 PG (26.0-33.0); MEAN CORPUSCULAR HGB CONC 34 g/dl (31.0-36.0); MEAN CORPUSCULAR VOLUME 85 fL (80-96); MONOCYTES # (AUTO) 0.8 /CMM (0.1-1.30); MONOCYTES % (AUTO) 8.5 % (2.0-12.0); NEUTROPHILS # (AUTO) 6.5 /CMM (1.8-8.9); NEUTROPHILS % (AUTO) 71.8 % (43.0-81.0); PLATELET COUNT (AUTO) 306 /CMM (150-450); RDW COEFFICIENT OF VARIATION 13.5 (11.5-15.0); RED BLOOD CELL COUNT(AUTO) 5.03 MIL/uL (4.5-6.0); WHITE BLOOD COUNT (AUTO) 9.1 K/uL (4.3-11.0)
[2017-10-02 06:29] LABS: CALCIUM, SERUM 9.6 mg/dL (8.5-10.1); CREATININE 0.6 mg/dL (0.6-1.3); MAGNESIUM 1.9 mg/dL (1.8-2.4); PHOSPHORUS 3.1 mg/dL (2.5-4.9); POTASSIUM 4.1 mmol/L (3.5-5.1)
--- NOTE | 2017-10-02 06:51 | NUR ---
MS/RN NOTES PT. IS LYING IN BED RESTING. BREATHING EVEN AND UNLABORED ON 2LPM O2 VIA NC. NO SOB, RESPIRATORY DISTRESS OR COMPLAINTS OF PAIN NOTED AT THIS TIME AND THROUGHOUT SHIFT. PT. WITH RIGHT AC 20 GAUGE IV SALINE LOCK PRESENT, PATENT AND INTACT. ALL PT. NEEDS MET. BED LOCKED AND IN LOWEST POSITION, SIDE RAILS UP X2, CALL LIGHT WITHIN REACH, WILL ENDORSE TO DAYSHIFT NURSE FOR CONTINUITY OF CARE.
--- NOTE | 2017-10-02 07:47 | NUR ---
MS RN NOTES: RECEIVED PT ON BED AWAKE, ALERT AND VERBALLY RESPONSIVE. NO ACUTE DISTRESS NOTED. NO COMPLAINTS OF PAIN OR DISCOMFORT AT THIS TIME. BREATHING EVEN AND UNLABORED WITH NORMAL RESPIRATIONS. IV ON RIGHT AC G20 INTACT AND PATENT. KEPT CLEAN, DRY AND COMFORTABLE. SAFETY AND FALL PRECAUTIONS OBSERVED AND MAINTAINED. WILL CONTINUE TO MONITOR PT.
[2017-10-02 08:00] VITALS: BP 146/90
[2017-10-02 08:49] VITALS: BP 146/90
[2017-10-02] MEDS ORDERED: DEXAMETHASONE SOD PHOSPHATE 10 MG/ML VIAL IV ONE (13:00)
--- NOTE | 2017-10-02 14:17 | NUR ---
RN NOTE RECEIVED REPORT FROM CJ SPEARS. PATIENT IS RESTING COMFORTABLY IN BED AT THIS TIME. ABLE TO COMMUNICATE NEEDS. WILL CONTINUE COLEEN
--- NOTE | 2017-10-02 15:04 | NUR ---
TEXTED DR. ZULUAGA FOR MRI APPROVAL.
[2017-10-02 16:00] VITALS: BP 132/83
[2017-10-02] MEDS: RIVAROXABAN 15 MG TABLET PO SCH (16:11)
--- NOTE | 2017-10-02 18:24 | NUR ---
MS RN CLOSING NOTE PATIENT IS RESTING IN BED AT THIS TIME COMFORTABLY. NO PAIN NOTED AT THIS TIME. NO SOB OR DISTRESS NOTED. CALL LIGHT WITHIN REACH AT ALL TIMES. SAFETY MEASURES IMPLEMENTED. ABLE TO COMMUNICATE NEEDS. IV INTACT AND PATENT NO REDNESS OR SWELLING NOTED, FLUSHES WELL. ALL NURSING CARE NEED ATTENDED TO NEEDED. WILL HAVE MRI OF RIGHT HIP AND TSPINE, CONSENT OBTAINED AND PLACED IN CHART. WILL ENDORSE TO SENIOR LICENSING MANAGER NURSE FOR COLEEN
[2017-10-02 20:00] VITALS: BP 131/82
--- NOTE | 2017-10-02 20:00 | NUR ---
DL RN NOTES RECEIVED BEDSIDE REPORT FROM AM NURSE.PT ON BED AWAKE, ALERT, ORIENTED X4 AND VERBALLY RESPONSIVE. NO ACUTE DISTRESS NOTED AT THIS TIME. NO COMPLAINTS OF PAIN OR DISCOMFORT AT THIS TIME. PT IS ON NC O2 2L WITH BREATHING EVEN AND UNLABORED. IV ON RIGHT AC G20 INTACT AND PATENT. PT IS CLEAN, DRY AND COMFORTABLE. SAFETY AND FALL PRECAUTIONS OBSERVED AND IMPLEMENTED. WILL CONTINUE TO MONITOR. Addendum: 10/03/17 at 0057 by TAMMI LAY RN DL RN NOTES DECADRON MEDICATION WILL NOT BE GIVEN AT 0000 10/03/2017. MD ORDER IS Q6HR AND ALREADY IS GIVEN AT 2100 10/02/2017. [place] 03010/03/2017 AND WILL BE ENDORSE TO AM SHIFT NURSE.
[2017-10-02] MEDS: DEXAMETHASONE SOD PHOSPHATE 4 MG/ML VIAL IV SCH (21:03)
[2017-10-03 04:00] VITALS: BP 129/85
[2017-10-03] MEDS: DEXAMETHASONE SOD PHOSPHATE 4 MG/ML VIAL IV SCH ×4 (04:54→17:19)
--- NOTE | 2017-10-03 07:03 | NUR ---
MRI APPROVED,SPOKE TO CHARGE NURSE (SOON) IT WILL DONE TODAY 10/03 OK BY NURSE SOON.
[2017-10-03 08:00] VITALS: BP 134/76
--- NOTE | 2017-10-03 08:00 | NUR ---
MS RN NOTE PATIENT IN BED ALERT X3 ON 2 NC NO SOB NOTED , CALL LIGHT WITHIN REACH , RT FA HL INTACT NO S\O PAIN OR DISCOMFORT AT THIS TIME , BED IN LOWEST AND LOCKED POSITION WILL HAVE MRI TODAY. WILL F\U
[2017-10-03] MEDS: RIVAROXABAN 15 MG TABLET PO SCH ×2 (08:21→16:08)
--- NOTE | 2017-10-03 09:40 | NUR ---
MS RN NOTE CALLED TO MRI DEPARTMENT SPOKE WITH JACINTO STATED AWAITING FROM TEACH TO HAVE APPROVAL TO DO PROCEDURE
[2017-10-03 10:00] VITALS: BP 134/76
--- NOTE | 2017-10-03 11:36 | NUR ---
MS [place] NOTE TAKEN TO MRI FOR PROCEDURE, CRUZ MarroquinU Addendum: 10/03/17 at 1457 by AYAZ WALTER RN TAKEN TO MRI BRAIN PER DR SWETA SHARMA
[2017-10-03] MEDS ORDERED: Rivaroxaban PO (14:23)
[2017-10-03] MEDS ORDERED: DEXA4TAB68 PO (14:23)
[2017-10-03 16:00] VITALS: BP 136/73
--- NOTE | 2017-10-03 17:00 | NUR ---
MS SAUNDERS PER DR LISBET OAKES FOR GREGORY LO ,DR FREITAS AWARE OB MRI HEAD RESULT Addendum: 10/03/17 at 1724 by AYAZ WALTER RN DR BELTRAN AWARE MRI HEAD RESULT ,PER DR AMILCAR SUERO TO WAIT FOR RADIOLOGIST ONCOLOGIST, WILL VISITED PATIENT AND AND SEE IF CLEAR GO HOME WILL F\U
--- NOTE | 2017-10-03 17:52 | NUR ---
MS RN NOTE RADIOLOGIST ONCOLOGIST AT BEDSIDE EXAMINED PATIENT
--- NOTE | 2017-10-03 18:56 | NUR ---
MS RN NOTE HL REMOVED , PER DR FITZGERALD AND DR GONZALEZ ONCOLOGIST RADIOLOGIST OK TO D\C HOME,D\C INSTRUCTION GIVEN , PX GIVEN ,INSTRUCTED HOW TO TAKE NEW PX AND HOME MEDS AND POSSIBLE SIDE EFFECTS , INSTRUCTED TO F\U WITH DR BELTRAN ANDDR GONZALEZ OUTPATIENT ,LEFT HOME WITH STABLE CONDITION WITH FIANCE
== END 2017-10-03 18:54 | disposition home or self-care (01) | DRG 134 ==
LOC: ER 01:01 → TELE-TD 04:42 → MEDSG1 12:52
PROVIDERS: ADMIT Internal Medicine; ATTEND Internal Medicine
DX: I26.99 Other pulmonary embolism without acute cor pulmonale (principal); J96.01 Acute respiratory failure with hypoxia; C78.00 Secondary malignant neoplasm of unspecified lung; C79.51 Secondary malignant neoplasm of bone; J90 Pleural effusion, not elsewhere classified; D68.69 Other thrombophilia; I31.3 Pericardial effusion (noninflammatory); E88.09 Other disorders of plasma-protein metabolism, not elsewhere classified; E83.52 Hypercalcemia; I25.10 Atherosclerotic heart disease of native coronary artery without angina pectoris; Z95.5 Presence of coronary angioplasty implant and graft; F19.10 Other psychoactive substance abuse, uncomplicated; I25.2 Old myocardial infarction; R59.1 Generalized enlarged lymph nodes; R63.4 Abnormal weight loss; Z68.30 Body mass index [BMI] 30.0-30.9, adult; R16.0 Hepatomegaly, not elsewhere classified; D72.829 Elevated white blood cell count, unspecified; E66.9 Obesity, unspecified; R53.1 Weakness; M54.9 Dorsalgia, unspecified; M25.551 Pain in right hip; M79.622 Pain in left upper arm
CPT/HCPCS: 36415; 70551-TC; 71045-TC; 72157-TC; 73723-TC; 80048-TC; 80076-TC; 80305; 83735-TC; 83880; 84100-TC; 84484-TC; 85025-TC; 85378-TC; 85730-TC; 87081-TC; 93971-TC; A4606; J1100; J1170; J1650; J2405; J7040; Q9967; Z7610

== ENCOUNTER 2019-03-12 00:48 | Inpatient (IN) | payer MEDICAID ==
[~2019-03-12] VITALS: Ht 170.2 cm; Wt 100.7 kg
[~2019-03-12 00:48] MED LIST changes: -ASPI-1169 PO; +DEXA4TAB68 PO; +Rivaroxaban PO
--- NOTE | 2019-03-12 01:02 | NUR ---
PT AMBULATED INTO THE ER WITH A STEADY GAIT. PT APPEARS ASHEN AND HAS DRY SKIN. PT HAS BLE EDEMA AND IS C/O NECK PAIN. PT'S FAMILY MEMEBER STATED THAT THE PT IS FORGETFUL DUE TO HIS CANCER METASTICIZING TO HIS BRAIN, BONE, & LYMPH. PT IS PRONE TO BLOOD CLOTS AND IS ON XERALTO. DR GONZALEZ IS AT THE BEDSIDE.
[2019-03-12 01:16] LABS: BASOPHILS # (AUTO) 0.1 /CMM (0.0-0.2); BASOPHILS % (AUTO) 0.8 % (0.0-2.0); EOSINOPHILS % (AUTO) 1.4 % (0.0-6.0); HEMATOCRIT 50 % (39-51); HEMOGLOBIN 16.5 g/dL (13.5-17.5); LYMPHOCYTES # (AUTO) 1.4 /CMM (0.8-4.8); LYMPHOCYTES % (AUTO) 20.6 % (20.0-44.0); MEAN CORPUSCULAR HGB CONC 33 g/dl (31.0-36.0); MEAN CORPUSCULAR VOLUME 102 fL (80-96); MONOCYTES # (AUTO) 0.9 /CMM (0.1-1.30); MONOCYTES % (AUTO) 14.1 % (2.0-12.0); NEUTROPHILS # (AUTO) 4.2 /CMM (1.8-8.9); NEUTROPHILS % (AUTO) 63.1 % (43.0-81.0); PLATELET COUNT (AUTO) 174 /CMM (150-450); RED BLOOD CELL COUNT(AUTO) 4.88 MIL/uL (4.5-6.0); WHITE BLOOD COUNT (AUTO) 6.7 K/uL (4.3-11.0)
[2019-03-12 01:24] LABS: CALCIUM, SERUM 10.4 mg/dL (8.5-10.1); CREATININE 1.3 mg/dL (0.6-1.3)
--- NOTE | 2019-03-12 02:09 | NUR ---
CALLING KINJAL RE: CXR RESULTS.
[2019-03-12] MEDS ORDERED: FUROSEMIDE 40 MG/4 ML VIAL IV ONE (03:00)
[2019-03-12] MEDS ORDERED: ONDANSETRON HCL/PF 4 MG/2 ML VIAL ONE (03:28)
[2019-03-12] MEDS ORDERED: HYDROMORPHONE 1 MG/1 ML DISP.SYRIN ONE (03:29)
--- NOTE | 2019-03-12 03:32 | NUR ---
PT IS C/O PAIN. NEW ORDERS GIVEN.
--- NOTE | 2019-03-12 03:33 | NUR ---
Sam lloyd in [facility] - 03/12/19 at 0345 by [email or web address] NIURKA REPORT TO FUAD HILL.
[2019-03-12] MEDS ORDERED: FUROSEMIDE 40 MG/4 ML VIAL ONE (03:35)
[2019-03-12] MEDS ORDERED: HYDROMORPHONE 1 MG/1 ML DISP.SYRIN IV STA (03:41)
[2019-03-12] MEDS ORDERED: ONDANSETRON HCL/PF 4 MG/2 ML VIAL IV STA (03:41)
--- NOTE | 2019-03-12 03:41 | NUR ---
ACCUCHECK DONE. BLOOD SUGAR = 70
--- NOTE | 2019-03-12 03:53 | NUR ---
REPORT GIVEN TO CLAIR RN
[2019-03-12] MEDS ORDERED: HYDROCODONE/APAP 5/325MG 1 EACH TABLET PO PRN (04:00)
[2019-03-12] MEDS ORDERED: NITROGLYCERIN 0.4 MG/TAB BOTTLE SL PRN (04:00)
[2019-03-12] MEDS ORDERED: MORPHINE SULFATE INJ 2 MG/ML DISP.SYRIN IV PRN (04:00)
[2019-03-12 04:30] VITALS: BP 138/101
--- NOTE | 2019-03-12 05:00 | NUR ---
FLIGHT READINESS TECHNICIANWAREHOUSE GENERAL LABORER NOTES RECEIVED PATIENT FROM ER VIA [facility] ACCOMPANIED BY ER STAFF. ALERT AND ORIENTED X 4. AMBULATORY, VERBALLY RESPONSIVE AND ABLE TO FOLLOW DIRECTIONS. BREATHING REGULAR AND UNLABORED ON OXYGEN AT 2L/min VIA NASAL CANNULA. RIGHT AC G20 IV LINE INTACT AND PATENT, FLUSHING WELL WITH NO BLEEDING OR S/S OF INFILTRATION NOTED. BODY ASSESSMENT DONE; SEEN WITH BLE +2 PITTING EDEMA AND MULTIPLE SCRATCH CHARLES AND BOTH HANDS SKIN DRYNESS. PHOTOS TAKEN, KEPT IN THE CHART. ATTACHED TO MANAGER HIGHWAY WITH INITIAL RHYTHM OF NSR WITH BUNDLE BLOCK AT 89bpm. BELONGINGS CHECKED, SEEN WITH A SMALL AMOUNT OF METHAMPHETAMINE AND DRUG PARAPHERNALIA. CONFISCATED AND LOCKED ON THE SAFE. COMPLAINED OF 2/10 LOWER BACK PAIN. NON-PHARMACOLOGICAL INTERVENTIONS PROVIDED. BED UJLIAN AND LOCKED ON SEMI FOWLERS POSITION. CALL LIGHT IN REACH. WILL CONTINUE TO MONITOR.
--- NOTE | 2019-03-12 05:30 | NUR ---
CLINICAL TRAINING COORDINATOR NOTES PATIENT WISHES TO BE ON DNR, CHIEF EXECUTIVE CONSULT ORDERED.
--- NOTE | 2019-03-12 06:40 | NUR ---
SPECIAL DAY CLASS TEACHER CLOSING NOTES PATIENT IN BED, ALERT AND ORIENTED X 4. BREATHING UNLABORED ON OXYGEN AT 2L/min VIA NASAL CANNULA. RIGHT AC G20 IV LINE INTACT AND FLUSHING WELL. NO COMPLAINTS OF PAIN/DISCOMFORT REPORTED OF THE TIME. MAINTAINED ON CARDIAC MONITORING WITH NSR WITH BUNDLE BLOCK AT 89bpm. BED LOW AND LOCKED ON SEMI FOWLERS POSITION. CALL LIGHT IN REACH. WILL ENDORSE TO MORNING SHIFT FOR COLEEN.
[2019-03-12 07:10] VITALS: BP 138/101
[2019-03-12] MEDS ORDERED: IV NS 0.9% 1,000 ML IV PRN (07:22)
[2019-03-12 08:00] VITALS: BP 122/88
[2019-03-12] MEDS ORDERED: FUROSEMIDE 40 MG/4 ML VIAL IV SCH (09:00)
[2019-03-12] MEDS ORDERED: HEPARIN SODIUM, PORCINE 5000 UNITS/1 ML VIAL SQ SCH (09:00)
[2019-03-12] MEDS ORDERED: RIVAROXABAN 15 MG TABLET PO SCH (09:00)
--- NOTE | 2019-03-12 09:30 | NUR ---
kim in to see pt.
--- NOTE | 2019-03-12 10:24 | NUR ---
Social Work consult was ordered for this patient who reportedly wants to be placed on DNR status due to metastatic cancer. Pt. also abuses methamphetamines. Case was discussed with Dr Watson who stated that she will address this with patient today. general warehouse worker will follow up if needed but no further action at this point.
[2019-03-12] MEDS: DEXAMETHASONE 4 MG TABLET PO SCH ×3 (13:18→23:49)
--- NOTE | 2019-03-12 15:50 | NUR ---
brother in to visit most of the day.
[2019-03-12 16:00] VITALS: BP 127/92
--- NOTE | 2019-03-12 16:21 | NUR ---
louise morales in to see pt.
--- NOTE | 2019-03-12 19:10 | NUR ---
MS RN NOTE RECEIVED PT IN STABLE CONDITION A/O X4, CURRENTLY RESTING IN BED, FAMILY AT BEDSIDE. NO SIGNS OF SOB OR DISTRESS, NO INDICATIONS OF PAIN. IV IN RAC #[address] WITH IVF INFUSING, TOLERATING WELL. ALL CURRENT NEEDS ATTENDED TO. BED LOW, LOCKED, UPPER RAILS UP, AND CALL LIGHT WITHIN REACH, WILL CONT. TO MONITOR.
[2019-03-12 20:00] VITALS: BP 119/79
--- NOTE | 2019-03-12 20:30 | NUR ---
MS RN NOTE CALLED [facility] FOR MUCOMYST 600 MG. STATED THEY WILL BRING UP. WILL CONT. TO MONITOR.
[2019-03-12] MEDS ORDERED: ACETYLCYSTEINE 10% 3,000 MG/30 ML VIAL PO ONE (21:00)
[2019-03-12] MEDS: ENOXAPARIN SODIUM 100 MG/ML DISP.SYRIN SQ SCH (21:40)
[2019-03-13] MEDS: DEXAMETHASONE 4 MG TABLET PO SCH ×3 (05:02→17:16)
--- NOTE | 2019-03-13 06:21 | NUR ---
MS RN NOTE PT REMAINS IN STABLE CONDITION A/O X4, CURRENTLY RESTING IN BED. NO SIGNS OF SOB OR DISTRESS, NO INDICATIONS OF PAIN. IV IN RAC #[address] WITH IVF INFUSING, TOLERATING WELL. ALL CURRENT NEEDS ATTENDED TO. BED LOW, LOCKED, UPPER RAILS UP, AND CALL LIGHT WITHIN REACH, WILL CONT. TO MONITOR AND ENDORSE TO NEXT SHIFT FOR COLEEN.
[2019-03-13 08:13] LABS: ALBUMIN 2.7 g/dL (3.4-5.0); BILIRUBIN,TOTAL 1.9 mg/dL (0.2-1.0); CALCIUM, SERUM 9.4 mg/dL (8.5-10.1); CREATININE 0.9 mg/dL (0.6-1.3); MAGNESIUM 1.7 mg/dL (1.8-2.4); POTASSIUM 4.8 mmol/L (3.5-5.1); TOTAL PROTEIN, SERUM 6.1 g/dL (6.4-8.2)
[2019-03-13 08:28] LABS: BASOPHILS % (AUTO) 0.1 % (0.0-2.0); HEMATOCRIT 48 % (39-51); HEMOGLOBIN 16.2 g/dL (13.5-17.5); LYMPHOCYTES # (AUTO) 0.6 /CMM (0.8-4.8); LYMPHOCYTES % (AUTO) 6.5 % (20.0-44.0); MEAN CORPUSCULAR HGB CONC 33 g/dl (31.0-36.0); MEAN CORPUSCULAR VOLUME 102 fL (80-96); MONOCYTES # (AUTO) 0.3 /CMM (0.1-1.30); MONOCYTES % (AUTO) 3.3 % (2.0-12.0); NEUTROPHILS % (AUTO) 90.1 % (43.0-81.0); PLATELET COUNT (AUTO) 173 /CMM (150-450); RED BLOOD CELL COUNT(AUTO) 4.76 MIL/uL (4.5-6.0); WHITE BLOOD COUNT (AUTO) 8.9 K/uL (4.3-11.0)
[2019-03-13] MEDS ORDERED: RIVAROXABAN 10 MG TABLET PO SCH (09:00)
[2019-03-13] MEDS ORDERED: IOHEXOL-300 100 ML VIAL IV ONE (11:21)
[2019-03-13] MEDS ORDERED: IV NS 0.9% 250 ML IV ONE (11:21)
[2019-03-13] MEDS ORDERED: CT SWABBABLE VALVE TRANS SET 1 EA INFUS.SET MC ONE (11:21)
[2019-03-13] MEDS: ENOXAPARIN SODIUM 100 MG/ML DISP.SYRIN SQ SCH ×2 (11:59→20:58)
[2019-03-13] MEDS: Magnesium 1GM/D5W 100ML PREMIX 100 ML IV SCH ×2 (12:02→13:42)
[2019-03-13] MEDS ORDERED: NEUTRA PHOS 1 POWD.PACKET PO ONE (12:30)
[2019-03-13] MEDS: HYDROMORPHONE INJ 2 MG/ML DISP.SYRIN IV PRN ×2 (13:12→19:45)
[2019-03-13] MEDS ORDERED: POLYETHYLENE GLYCOL 3350 17 GM POWD.PACK PO PRN (17:00)
--- NOTE | 2019-03-13 18:30 | NUR ---
MULTIPLE MD'S IN TO SEE PT. MG IV REPLACEMENT AND NEUTRA PHOS GIVEN.MIRALAX GIVEN.MED. X1 FOR PAIN.
--- NOTE | 2019-03-13 19:00 | NUR ---
HAD CAT SCAN TODAY AND RN REQUESTED RECORDS FROM [facility] AND [facility].
[2019-03-13 19:30] VITALS: BP 124/89
--- NOTE | 2019-03-13 19:30 | NUR ---
MS RN NOTES PATIENT IN AWAKE, IN BED ALERT ORIENTED X4. BREATHING EVEN AND UNLABORED, ON ROOM AIR. DENIES NO SIGNS OF ACUTE RESPIRATORY DISTRESS, NO SIGNS OF ACUTE PAIN. IV ON RAC #20G SL. SHOWS NO SIGNS OF REDNESS, NO INFILTRATION. SAFETY PRECAUTION IN PLACE. BED IN LOWEST POSITION LOCKED. WILL CONTINUE TO MONITOR.
--- NOTE | 2019-03-13 19:45 | NUR ---
MS RN NOTES PATIENT COMPLAINED PAIN OF 8/10 ON HIS BACK. PER PRN GIVEN DILAUDID AT 1945. WILL CONTINUE TO MONITOR.
[2019-03-13 20:00] VITALS: BP 124/89
[2019-03-14] MEDS: DEXAMETHASONE 4 MG TABLET PO SCH ×5 (00:17→23:31)
[2019-03-14 06:23] LABS: BASOPHILS % (AUTO) 0.1 % (0.0-2.0); HEMATOCRIT 49 % (39-51); HEMOGLOBIN 16.3 g/dL (13.5-17.5); LYMPHOCYTES # (AUTO) 0.5 /CMM (0.8-4.8); LYMPHOCYTES % (AUTO) 3.5 % (20.0-44.0); MEAN CORPUSCULAR HGB CONC 33 g/dl (31.0-36.0); MEAN CORPUSCULAR VOLUME 102 fL (80-96); MONOCYTES # (AUTO) 0.5 /CMM (0.1-1.30); MONOCYTES % (AUTO) 3.3 % (2.0-12.0); NEUTROPHILS # (AUTO) 14.2 /CMM (1.8-8.9); NEUTROPHILS % (AUTO) 93.1 % (43.0-81.0); PLATELET COUNT (AUTO) 193 /CMM (150-450); RED BLOOD CELL COUNT(AUTO) 4.85 MIL/uL (4.5-6.0); WHITE BLOOD COUNT (AUTO) 15.3 K/uL (4.3-11.0)
--- NOTE | 2019-03-14 06:48 | NUR ---
MS RN NOTES PATIENT IN ASLEEP EASILY AROUSED, IN BED ALERT ORIENTED X4. BREATHING EVEN AND UNLABORED, ON NC 2L. DENIES NO SIGNS OF ACUTE RESPIRATORY DISTRESS, NO SIGNS OF ACUTE PAIN. IV ON RAC #20G SL. SHOWS NO SIGNS OF REDNESS, NO INFILTRATION. ALL DUE MEDICATION GIVEN.SAFETY PRECAUTION IN PLACE. BED IN LOWEST POSITION LOCKED. WILL ENDORSE TO ONCOMING NURSE.
[2019-03-14 07:08] LABS: CALCIUM, SERUM 8.9 mg/dL (8.5-10.1); CREATININE 0.8 mg/dL (0.6-1.3); MAGNESIUM 2.3 mg/dL (1.8-2.4); POTASSIUM 5.5 mmol/L (3.5-5.1)
--- NOTE | 2019-03-14 07:13 | NUR ---
RN OPENING NOTES PATIENT AWAKE IN BED RESTING. A/OX4, ABLE TO MAKE NEEDS KNOWN. NOT IN ANY FORM OF DISTRESS. NO SOB. DENIED PAIN OR DISCOMFORT AT THIS TIME. IV ACCESS INTACT AND PATENT, NO INFILTRATION NOR REDNESS. KEPT PATIENT SAFE AND COMFORTABLE. BED IN LOW/LOCKED PSOTION, SIDERAILS UPX2, CALL LIGHT IN REACH. WILL CONT TO MONITOR ACCORDINGLY
[2019-03-14 07:57] VITALS: BP 125/80
[2019-03-14] MEDS: ENOXAPARIN SODIUM 100 MG/ML DISP.SYRIN SQ SCH ×2 (09:11→21:09)
[2019-03-14] MEDS ORDERED: K PHOS NEUTRAL 250 MG TABLET PO ONE (10:30)
[2019-03-14 16:00] VITALS: BP 121/76
[2019-03-14] MEDS: HYDROMORPHONE INJ 2 MG/ML DISP.SYRIN IV PRN ×2 (18:28→23:31)
[2019-03-14 19:30] VITALS: BP 123/82
--- NOTE | 2019-03-14 19:30 | NUR ---
RN CLOSING NOTES PATIENT IN STABLE CONDITION. NO SIGNIFICANT CHANGE OF CONDITION DURING THE SHIFT. ALL NEEDS ATTENDED AND PROVIDED. ALL DUE MEDS GIVEN ORDERED. KEPT PATIENT SAFE AND COMFORTABLE. BED IN LOW/LOCKED POSITION. SIDERAILS UPX2, CALL LIGHT IN REACH. ENDORSED TO NIGHT RN FOR COLEEN.
--- NOTE | 2019-03-14 19:36 | NUR ---
MS RN NOTES PATIENT IN AWAKE, IN BED ALERT ORIENTED X4. BREATHING EVEN AND UNLABORED, ON NC 2L. DENIES NO SIGNS OF ACUTE RESPIRATORY DISTRESS, NO SIGNS OF ACUTE PAIN. IV ON RAC #20G SL. SHOWS NO SIGNS OF REDNESS, NO INFILTRATION. SAFETY PRECAUTION IN PLACE. BED IN LOWEST POSITION LOCKED. WILL CONTINUE TO MONITOR.
[2019-03-14 21:33] VITALS: BP 123/82
--- NOTE | 2019-03-14 23:32 | NUR ---
MS RN NOTES PATIENT COMPLAINED PAIN OF 8/10 ON HIS BACK. PER PRN GIVEN DILAUDID AT 2332. WILL CONTINUE TO MONITOR.
[2019-03-15] MEDS: DEXAMETHASONE 4 MG TABLET PO SCH ×2 (05:07→13:05)
[2019-03-15 05:08] VITALS: BP 120/61
--- NOTE | 2019-03-15 06:33 | NUR ---
MS RN NOTES PATIENT ASLEEP EASILY AROUSED, IN BED ALERT ORIENTED X4. BREATHING EVEN AND UNLABORED, ON NC 2L. DENIES NO SIGNS OF ACUTE RESPIRATORY DISTRESS, NO SIGNS OF ACUTE PAIN. IV ON RAC #20G SL. SHOWS NO SIGNS OF REDNESS, NO INFILTRATION. ALL DUE MEDICATION GIVEN.SAFETY PRECAUTION IN PLACE. BED IN LOWEST POSITION LOCKED. WILL ENDORSE TO ONCOMING NURSE.
[2019-03-15 06:59] LABS: HEMATOCRIT 49 % (39-51); HEMOGLOBIN 15.9 g/dL (13.5-17.5); LYMPHOCYTES # (AUTO) 0.4 /CMM (0.8-4.8); LYMPHOCYTES % (AUTO) 3.1 % (20.0-44.0); MEAN CORPUSCULAR HGB CONC 33 g/dl (31.0-36.0); MEAN CORPUSCULAR VOLUME 102 fL (80-96); MONOCYTES # (AUTO) 0.3 /CMM (0.1-1.30); MONOCYTES % (AUTO) 2.5 % (2.0-12.0); NEUTROPHILS # (AUTO) 12.8 /CMM (1.8-8.9); NEUTROPHILS % (AUTO) 94.4 % (43.0-81.0); PLATELET COUNT (AUTO) 202 /CMM (150-450); RED BLOOD CELL COUNT(AUTO) 4.76 MIL/uL (4.5-6.0); WHITE BLOOD COUNT (AUTO) 13.5 K/uL (4.3-11.0)
[2019-03-15 07:24] LABS: ALBUMIN 2.8 g/dL (3.4-5.0); BILIRUBIN,TOTAL 0.7 mg/dL (0.2-1.0); CALCIUM, SERUM 8.7 mg/dL (8.5-10.1); CREATININE 0.9 mg/dL (0.6-1.3); MAGNESIUM 2.1 mg/dL (1.8-2.4); PHOSPHORUS 2.3 mg/dL (2.5-4.9)
[2019-03-15] MEDS ORDERED: Rivaroxaban PO (07:42)
[2019-03-15 08:00] VITALS: BP 108/76
[2019-03-15] MEDS: HYDROMORPHONE INJ 2 MG/ML DISP.SYRIN IV PRN (08:02)
[2019-03-15] MEDS: ENOXAPARIN SODIUM 100 MG/ML DISP.SYRIN SQ SCH (08:09)
[2019-03-15] MEDS ORDERED: FOLIC ACID 1 MG TABLET PO SCH (09:00)
[2019-03-15] MEDS ORDERED: K PHOS NEUTRAL 250 MG TABLET PO ONE (12:00)
--- NOTE | 2019-03-15 14:50 | NUR ---
M/S RN NOTES PATIENT DISCHARGED IN STABLE CONDITION. PATIENT IN NO RESPIRATORY DISTRESS, NO C/O PAIN AT THIS TIME. PATIENT'S IV REMOVED AND APPLIED PRESSURE DRESSING. SKIN ASSESSED, NO SKIN BREAKDOWN. PATIENT GIVEN DISCHARGE INSTRUCTIONS, VERBALIZED UNDERSTANDING. PATIENT'S BELONGINGS ACCOUNTED FOR AND SIGNED, EXPLAINED TO PATIENT THAT ILLEGAL DRUGS AND CONTRABAND HE BROUGHT IN ON ADMISSION ARE CONFISCATED AND WILL NOT BE GIVEN BACK, PATIENT VERBALIZED UNDERSTANDING. PATIENT ESCORTED TO THE LOBBY AND LEFT WITH HIS BROTHER IN PRIVATE CAR.
== END 2019-03-15 14:50 | disposition home or self-care (01) | DRG 194 ==
LOC: ER 00:52 → TELE 03:29 → MED 12:05
PROVIDERS: ADMIT Student in an Organized Health Care Education/Training Program; ATTEND Student in an Organized Health Care Education/Training Program
DX: I11.0 Hypertensive heart disease with heart failure (principal); C79.31 Secondary malignant neoplasm of brain; D68.59 Other primary thrombophilia; C79.51 Secondary malignant neoplasm of bone; I82.431 Acute embolism and thrombosis of right popliteal vein; E86.0 Dehydration; E83.52 Hypercalcemia; I31.3 Pericardial effusion (noninflammatory); I50.23 Acute on chronic systolic (congestive) heart failure; I42.9 Cardiomyopathy, unspecified; C34.90 Malignant neoplasm of unspecified part of unspecified bronchus or lung; F15.90 Other stimulant use, unspecified, uncomplicated; F17.210 Nicotine dependence, cigarettes, uncomplicated; Z86.711 Personal history of pulmonary embolism; I25.2 Old myocardial infarction; I25.10 Atherosclerotic heart disease of native coronary artery without angina pectoris; K59.00 Constipation, unspecified; Z95.5 Presence of coronary angioplasty implant and graft; E66.9 Obesity, unspecified; Z68.34 Body mass index [BMI] 34.0-34.9, adult; Z66 Do not resuscitate; D72.829 Elevated white blood cell count, unspecified; Z79.899 Other long term (current) drug therapy; Z92.3 Personal history of irradiation; Z92.21 Personal history of antineoplastic chemotherapy
CPT/HCPCS: 36415; 70450-TC; 71045-TC; 71260-TC; 74018; 80048-TC; 80053-TC; 82962-TC; 83735-TC; 83880; 84100-TC; 84484-TC; 85025-TC; 87081-TC; 93307-TC; 93970-TC; 93971-TC; G0378; J1170; J1650; J1940; J2270; J2405; J3475; J7030; J7050; J8540; Q9967

== ENCOUNTER 2019-03-29 21:20 | Emergency (ER) | payer MEDICAID ==
[~2019-03-29] VITALS: Ht 170.2 cm; Wt 94.3 kg
--- NOTE | 2019-03-29 21:48 | NUR ---
BIB SELF C/O STEVIE KNEE PAIN SINCE YESTERDAY. DENIES TRAUMA., PT AWAKE, ALERT, -SOB, NAD NOTED, VSS, PENDING MD WINKLER
[2019-03-29] MEDS ORDERED: FUROSEMIDE 40 MG/4 ML VIAL ONE (22:27)
[2019-03-29] MEDS ORDERED: KETOROLAC TROMETHAMINE 15 MG/ML VIAL ONE (22:27)
[2019-03-29] MEDS ORDERED: HYDROCODONE/APAP 5/325MG 1 EACH TABLET ONE (22:28)
[2019-03-29] MEDS ORDERED: FUROSEMIDE 40 MG/4 ML VIAL IV ONE (22:30)
[2019-03-29] MEDS ORDERED: KETOROLAC TROMETHAMINE INJ 30 MG/ML VIAL IV ONE (22:30)
[2019-03-29] MEDS ORDERED: HYDROCODONE/APAP 5/325MG 1 EACH TABLET PO ONE (22:30)
[2019-03-29 22:46] LABS: CALCIUM, SERUM 10.3 mg/dL (8.5-10.1); CARBON DIOXIDE 27 mmol/L (21-32); CHLORIDE 107 mmol/L (98-107); CREATININE 1.2 mg/dL (0.6-1.3); GLUCOSE 76 mg/dL (74-106); POTASSIUM 3.8 mmol/L (3.5-5.1); SODIUM SERUM 141 mmol/L (136-145); UREA NITROGEN, BLOOD 32 mg/dL (7-18)
[2019-03-29 22:50] LABS: BASOPHILS % (AUTO) 0.1 % (0.0-2.0); EOSINOPHILS % (AUTO) 0.8 % (0.0-6.0); HEMATOCRIT 51 % (39-51); LYMPHOCYTES # (AUTO) 1.5 /CMM (0.8-4.8); LYMPHOCYTES % (AUTO) 10.7 % (20.0-44.0); MEAN CORPUSCULAR HGB CONC 33 g/dl (31.0-36.0); MEAN CORPUSCULAR VOLUME 102 fL (80-96); MONOCYTES # (AUTO) 1.5 /CMM (0.1-1.30); MONOCYTES % (AUTO) 10.6 % (2.0-12.0); NEUTROPHILS % (AUTO) 77.8 % (43.0-81.0); PLATELET COUNT (AUTO) 161 /CMM (150-450); RED BLOOD CELL COUNT(AUTO) 5.05 MIL/uL (4.5-6.0); WHITE BLOOD COUNT (AUTO) 14.1 K/uL (4.3-11.0)
[2019-03-29 22:59] LABS: ALANINE AMINOTRANSFERASE 103 U/L (12-78); ALBUMIN 2.6 g/dL (3.4-5.0); ALKALINE PHOSPHATASE 75 U/L (46-116); ASPARTATE AMINOTRANSFERASE 55 U/L (15-37); B-TYPE NATRIURETIC PEPTIDE 5003 PG/ML (0-125); BILIRUBIN,DIRECT 0.1 mg/dL (0.0-0.2); BILIRUBIN,TOTAL 0.4 mg/dL (0.2-1.0)
[2019-03-29 23:55] LABS: BAND % (MANUAL) 3 % (0.0-5.0); EOSINOPHILS % (MANUAL) 2 % (0-4); LYMPHOCYTES % (MANUAL) 12 % (16-48); MONOCYTES % (MANUAL) 8 % (0-11.0); NEUTROPHILS % (MANUAL) 74 (42-76); REACTIVE LYMPHOCYTES 1 % (0-0)
[2019-03-30] MEDS ORDERED: VANCOMYCIN 1 GM in IV D5W 250 ML IV ONE ×2
[2019-03-30] MEDS ORDERED: oxyCODONE/APAP (5/325 MG) 1 UDTAB TABLET PO ONE
[2019-03-30] MEDS ORDERED: CEFTRIAXONE 1GM BAG (ER ONLY) 1 GM/50 ML PIGGYBACK IV ONE
[2019-03-30] MEDS ORDERED: VANCOMYCIN 1 GM VIAL ONE (00:06)
[2019-03-30] MEDS ORDERED: PIPERACILLIN /TAZOBACTAM 3.375 G VIAL IV ONE (00:06)
[2019-03-30] MEDS ORDERED: oxyCODONE/APAP (5/325 MG) 1 UDTAB TABLET ONE (00:06)
[2019-03-30 00:18] VITALS: BP 114/75
--- NOTE | 2019-03-30 01:36 | NUR ---
Patient discharged to home in stable condition. Written and verbal after care instructions given. Patient verbalizes understanding of instruction. IV removed. Catheter intact and site benign. Pressure and 4x4 applied to site. No bleeding noted.
== END 2019-03-30 01:39 | disposition home or self-care (01) ==
LOC: ER 21:22
DX: S90.31XA Contusion of right foot, initial encounter (principal); I11.0 Hypertensive heart disease with heart failure; I50.9 Heart failure, unspecified; L03.115 Cellulitis of right lower limb; R79.89 Other specified abnormal findings of blood chemistry; F15.10 Other stimulant abuse, uncomplicated; H11.33 Conjunctival hemorrhage, bilateral; I45.10 Unspecified right bundle-branch block; R00.0 Tachycardia, unspecified; F17.200 Nicotine dependence, unspecified, uncomplicated; Z95.5 Presence of coronary angioplasty implant and graft; Z98.890 Other specified postprocedural states; Z79.899 Other long term (current) drug therapy; X58.XXXA Exposure to other specified factors, initial encounter; Y93.89 Activity, other specified; Y92.89 Other specified places as the place of occurrence of the external cause; Y99.8 Other external cause status
CPT/HCPCS: 36415 ×2; 71045; 73560 ×2; 73630; 80048; 80076; 83605 ×2; 83880; 84484 ×2; 85025; 85652; 86140; 93005; 96365; 96368; 96375; 99284; 99406; J1885; J1940; J2543; J3370